=== PATIENT | female | born 1950 | race Hispanic/Latino ===

== ENCOUNTER → 2018-06-26 | Outpatient (CLI) | payer MEDICARE | END | disposition home or self-care (01) | LOC: RAH 08:07 | PROVIDERS: ATTEND Obstetrics & Gynecology | DX: Z12.31 Encounter for screening mammogram for malignant neoplasm of breast (principal) | CPT/HCPCS: 77067 ==

== ENCOUNTER → 2019-08-20 | Outpatient (CLI) | payer MEDICARE | END | disposition home or self-care (01) | LOC: RAH 10:13 | PROVIDERS: ATTEND Obstetrics & Gynecology | DX: Z12.31 Encounter for screening mammogram for malignant neoplasm of breast (principal) | CPT/HCPCS: 77067 ==

== ENCOUNTER → 2020-10-27 | Outpatient (CLI) | payer MEDICARE | END | disposition home or self-care (01) | LOC: RAH 11:38 | PROVIDERS: ATTEND Obstetrics & Gynecology | DX: Z12.31 Encounter for screening mammogram for malignant neoplasm of breast (principal) | CPT/HCPCS: 77067 ==

== ENCOUNTER 2022-09-09 11:19 | Emergency (ER) | payer OTHER, MEDICARE ==
[~2022-09-09] VITALS: Ht 160 cm; Wt 60.8 kg
[2022-09-09 11:50] LABS: BASOPHILS % (AUTO) 0.6 % (0.0-5.0); EOSINOPHILS % (AUTO) 0.8 % (0.0-8.0); HEMATOCRIT 39.1 % (36-48); LYMPHOCYTES % (AUTO) 19.2 % (21.0-51.0); MEAN CORPUSCULAR HEMOGLOBIN 30.5 pg (27.0-33.0); MEAN CORPUSCULAR HGB CONC 32.5 g/dL (32.0-36.0); MONOCYTES % (AUTO) 7.8 % (3.0-13.0); NEUTROPHILS % (AUTO) 71.4 % (40.0-77.0); PLATELET COUNT (AUTO) 221 K/uL (130-400); RED BLOOD CELL COUNT(AUTO) 4.16 MIL/uL (4.00-5.50); RED CELL DISTRIBUTION WIDTH 13.6 % (11.0-15.5); WHITE BLOOD COUNT (AUTO) 8.9 K/uL (4.8-10.8)
[2022-09-09 12:14] LABS: CREATININE 0.8 mg/dL (0.5-1.5); POTASSIUM 4.4 mmol/L (3.5-5.1)
[2022-09-09 12:16] LABS: ALBUMIN 3.7 g/dL (3.5-5.0); TOTAL PROTEIN, SERUM 7.4 g/dL (6.0-8.3)
[2022-09-09] MEDS ORDERED: KETOROLAC 15MG/ML VIAL (15MG/ML) IV STA (12:39)
[2022-09-09 12:46] LABS: APPEARANCE,URINE CLOUDY (CLEAR); BILIRUBIN,URINE NEGATIVE (NEGATIVE); COLOR,URINE YELLOW (YELLOW); GLUCOSE, URINE (UA) >=1000 mg/dL (NEGATIVE); KETONES,URINE NEGATIVE (NEGATIVE); LEUKOCYTE ESTERASE ,URINE 250 Leu/uL (NEGATIVE); NITRATE,URINE NEGATIVE (NEGATIVE); OCCULT BLOOD,URINE NEGATIVE (NEGATIVE); PH,URINE 6.5 (5.0-8.0); PROTEIN,URINE 10 mg/dL (NEGATIVE); UROBILINOGEN,URINE 0.2 mg/dL (0.2-1.0)
[2022-09-09 12:54] LABS: BACTERIA,URINE MOD /HPF (None Seen); MUCUS,URINE RARE LPF (None Seen); SQUAMOUS EPITHELIAL CELL,UR RARE /HPF (0-2); WBC,URINE 51-100 /HPF (0-1)
[2022-09-09] MEDS ORDERED: DICL20GE TP (14:30)
[2022-09-09] MEDS ORDERED: CYCL10TA16 PO (14:30)
[2022-09-09] MEDS ORDERED: ACET-66 PO (14:30)
[2022-09-09] MEDS ORDERED: CEPH500B PO (14:31)
[2022-09-09 14:40] VITALS: BP 145/62
== END 2022-09-09 14:41 | disposition home or self-care (01) ==
LOC: EDH 11:19
DX: S46.912A Strain of unspecified muscle, fascia and tendon at shoulder and upper arm level, left arm, initial encounter (principal); S29.012A Strain of muscle and tendon of back wall of thorax, initial encounter; N39.0 Urinary tract infection, site not specified; E78.00 Pure hypercholesterolemia, unspecified; E11.9 Type 2 diabetes mellitus without complications; Z88.5 Allergy status to narcotic agent; X58.XXXA Exposure to other specified factors, initial encounter; Y93.89 Activity, other specified; Y92.89 Other specified places as the place of occurrence of the external cause; Y99.8 Other external cause status
CPT/HCPCS: 99284; 96374; 71045; 84484; 80053; 85025; 87077; 87088; 87186; 81001; 36415; 93005; J1885

== ENCOUNTER → 2023-10-13 | Outpatient (CLI) | payer OTHER ==
[~2023-10-13] MED LIST: ACET-66 PO; CEPH500B PO; CYCL10TA16 PO; DICL20GE TP
== END | disposition home or self-care (01) ==
LOC: RAH 10:02
PROVIDERS: ATTEND Family Medicine
DX: I70.0 Atherosclerosis of aorta (principal); R05.9 Cough, unspecified; J45.909 Unspecified asthma, uncomplicated; M47.815 Spondylosis without myelopathy or radiculopathy, thoracolumbar region
CPT/HCPCS: 71046

== ENCOUNTER → 2024-06-11 | Outpatient (CLI) | payer OTHER | END | disposition home or self-care (01) | LOC: RAH 13:13 | PROVIDERS: ATTEND Obstetrics & Gynecology | DX: Z12.31 Encounter for screening mammogram for malignant neoplasm of breast (principal); R92.323 Mammographic fibroglandular density, bilateral breasts; R92.1 Mammographic calcification found on diagnostic imaging of breast; R92.30 Dense breasts, unspecified | CPT/HCPCS: 77067 ==

== ENCOUNTER → 2024-07-14 | Outpatient (CLI) | payer OTHER ==
--- NOTE | 2024-07-14 11:15 | HMCIMG ---
Diagnostic left breast mammogram and left breast ultrasound. HISTORY: INCONCLUSIVE MAMMOGRAM COMPARISON: Screening mammogram 06/11/2024 TECHNIQUE: Left breast digital diagnostic mammogram was performed. Focal spot magnification views were obtained. Left breast ultrasound was performed as well. FINDINGS: Parenchymal density: There are scattered areas of fibroglandular density. There is a focal cluster of indeterminate calcification in the lower inner quadrant of the left breast between 8 and 9:00 in position. Spot magnification views confirm presence of some linear and amorphous forms. These could represent malignancy and biopsy is recommended. Ultrasound demonstrated a faintly visible mass in this area. The ultrasound abnormality measured 3 x 7 mm. Left breast mammogram and ultrasound are otherwise unremarkable. There is no architectural distortion. There is no acoustical shadowing on the ultrasound. There is no evidence of nipple retraction or skin thickening. IMPRESSION: 1. Indeterminate calcifications in the lower inner quadrant of the left breast, 8 to 9:00 position, biopsy recommended. 2. Percutaneous stereotactic biopsy is recommended as the area in question is small and the ultrasound findings are less conspicuous. 3. Initial report suggested the lesion was at the 3 to 4:00 position, the correct 8 to 9:00 position in the lower inner quadrant of the left breast. The patient was entered into a reminder system with a target due date for their next mammogram. BI-RADS CATEGORY 4: SUSPICIOUS ABNORMALITY. BIOPSY SHOULD BE CONSIDERED Recommend monthly self breast exam as well as annual clinical examination. A negative x-ray should not delay biopsy if a dominant or clinically suspicious mass is present, since 8-10% of cancers are not identified by mammography. Dense breasts particularly, may obscure an underlying neoplasm. Some of these may be detected clinically and therefore, clinical examination is an essential part of breast evaluation.
== END | disposition home or self-care (01) ==
LOC: RAH 09:35
PROVIDERS: ATTEND Obstetrics & Gynecology
DX: R92.1 Mammographic calcification found on diagnostic imaging of breast (principal); R92.322 Mammographic fibroglandular density, left breast; R92.2 Inconclusive mammogram
CPT/HCPCS: 76641; 77065

== ENCOUNTER → 2025-05-17 | Outpatient (CLI) | payer OTHER ==
[~2025-05-17] MED LIST changes: -ACET-66 PO; +CEFU500T67 PO; -CEPH500B PO; -CYCL10TA16 PO; -DICL20GE TP; +DULO60CA64 PO; +GABA300C PO; +GLIP1TAB6 PO; +LIDO5CRE26 TP; +MIRT7.5T11 PO; +NAPR-1194 PO; +OMEP20TA20 PO; +ONDA-245 PO; +PROC-3 PO; +ROSU5TAB51 PO; +VITA-300 PO; +VITA1CAP85 PO
--- NOTE | 2025-05-19 13:55 | HMCIMG ---
CLINICAL INDICATION: Asymptomatic menopausal state COMPARISON: None available TECHNIQUE: Bone densitometry is performed of the lumbar spine and left hip. FINDINGS: Total BMD of lumbar spine is 1.149 g/cm2 with a T-score of 0.9 and Z-score is 2.4. Total BMD of left hip is 0.869 g/cm2 with a T-score of -0.7 and Z-score is 1.2. FRAX SCORE: The 10 year fracture risk for a major osteoporotic fracture and hip fracture not reported T score above are intact -1.0 IMPRESSION: 1. Normal lumbar spine and left hip 2. I would recommend follow-up in 2 years World Health Organization criteria for BMD interpretation classify patients as Normal (T-score at or above -1.0), Osteopenic (T-score between -1.0 and -2.5), or Osteoporotic (T-score at or below -2.5). FRAX SCORE: A. All treatment decisions require clinical judgment and consideration of individual patient factors, including patient preferences, comorbidities, previous drug use, risk factors not captured in the FRAX model (e.g., frailty, falls, vitamin D deficiency, increased bone turnover, interval significant decline in bone density) and possible mhaao-co-uidc-estimation of fracture risk by FRAX. B. In addition, the NOF Guide recommends that FDA-approved medical therapies be considered in postmenopausal women and men age greater than or equal to 50 years with a: i. Hip or vertebral (clinical or morphometric) fracture. ii. T-score of less than or equal to -2.5 at the spine or hip. iii. Ten-year fracture probability by FRAX of greater than or equal to 3% for hip fracture of greater than or equal to 20% for major osteoporotic fracture.
== END | disposition home or self-care (01) ==
LOC: RAH 10:09
PROVIDERS: ATTEND Family Medicine
DX: Z78.0 Asymptomatic menopausal state (principal)
CPT/HCPCS: 77080

== ENCOUNTER → 2025-08-11 | Outpatient (CLI) | payer OTHER ==
--- NOTE | 2025-08-15 10:17 | HMCIMG ---
Right BREAST ULTRASOUND: Clinical history of breast cancer of the left breast patient has history of left breast lumpectomy.. Finding: Real-time examination of the [right/left] breast demonstrates homogeneous echotexture throughout the breast without evidence of focal solid or cystic masses. There is benign left axillary lymph node measuring 1.0 x 0.4 x 0.9 cm. IMPRESSION: No mass or cyst seen.. I would recommend annual mammography with tomography. FINAL ASSESSMENT: ACR: BI-RAD- 2. Benign Finding.
--- NOTE | 2025-08-15 10:20 | HMCIMG ---
DIGITAL right breast DIAGNOSTIC MAMMOGRAM Technique: The digital mammographic examination of right breast in craniocaudal, mediolateral oblique views along with CAD was obtained. Right breast sonogram demonstrate no lesion seen. History: This is a 75 years year-old female 4, para4 Ab0 . Patient has no family history of breast cancer. Patient has no complaint 07/14/2024, 0-20 02/18/2021 and 08/20/2019 are available. Reference:Prior mammogram from. Breast composition: Breast composition C: The breasts are heterogeneously dense, which may obscure small masses. Finding: The digital mammographic examination of right breast in craniocaudal and mediolateral oblique view along with CAD demonstrates mildly dense. There are scattered benign macrocalcification seen in the right breast.. There is no evidence of any dendritic mass, cluster microcalcification or architectural distortion. The retromammary fat appears to be normal. IMPRESSION: Unchanged from prior mammography. NO RADIOGRAPHIC EVIDENCE OF MALIGNANT CHANGES. WE WOULD RECOMMEND ANNUAL FOLLOW UP WITH TOMOSYNTHESIS UNLESS OTHERWISE CLINICALLY INDICATED. FINAL ASSESSMENT: ACR: BI-RAD- 2. Benign Finding. NOTE: IF A WORK-UP OF THIS PATIENT LEADS TO A BIOPSY, PLEASE FORWARD A COPY OF THE PATHOLOGY REPORT TO OUR OFFICE REQUIRED BY [employer] JUNE 01, 1994. A NEGATIVE MAMMOGRAM SHOULD NOT PRECLUDE BIOPSY OF A CLINICALLY PALPABLE SUSPICIOUS MASS, 10% OF BREAST CANCERS ARE MAMMOGRAPHICALLY OCCULT. THIS MAMMOGRAPHY FACILITY IS FULLY ACCREDITED BY THE FOOD AND [employer]UG [employer]ATION (FDA). THANK YOU FOR THIS REFERRAL.
== END | disposition home or self-care (01) ==
LOC: CANPRECLI → RAH 12:32
PROVIDERS: ATTEND Internal Medicine Hematology & Oncology
DX: C50.312 Malignant neoplasm of lower-inner quadrant of left female breast (principal); Z17.1 Estrogen receptor negative status [ER-]; R92.30 Dense breasts, unspecified
CPT/HCPCS: 76641; 77065